=== PATIENT | female | born 1995 | race African-American/Black ===

== ENCOUNTER 2017-04-18 23:02 | Emergency (ER) | payer OTHER ==
[~2017-04-18] VITALS: Ht 162.6 cm; Wt 122.7 kg
[2017-04-19 01:02] LABS: HEMATOCRIT 36.8 % (36.0-46.0); MCH 27.6 PG (29.0-34.0); MCHC 34.5 G/DL (30.0-36.0); MEAN PLAT.VOLUME 10.3 uM^3 (9.5-12.4); PLATELET COUNT 440 K/uL (156-360); RBC DIS.WIDTH-CV 12.7 % (11.8-14.6); RBC DIS.WIDTH-SD 36.4 % (39-53); WHITE BLOOD COUNT 8.4 K/uL (4.1-10.2)
[2017-04-19 01:12] LABS: CHLORIDE 107 mEq/L (99-109); POTASSIUM 3.8 mEq/L (3.7-5.4); SODIUM 138 mEq/L (136-147)
[2017-04-19 01:14] LABS: GLUCOSE 108 mg/dL (70-99)
[2017-04-19 01:15] LABS: ANION GAP 8 MEQ/L (2-14)
[2017-04-19 01:16] LABS: TOTAL BILIRUBIN 0.2 mg/dL (0.0-1.0)
[2017-04-19 01:17] LABS: ALKALINE PHOSPHATASE 101 IU/L (3-129); GFR ESTIMATE (CALCULATED) > 59 mL/min/
[2017-04-19 01:19] LABS: UREA NITROGEN (BUN) 10 mg/dL (9-23)
[2017-04-19] MEDS ORDERED: LITHIUM CARBON300 M1 PO (01:25)
[2017-04-19 01:33] LABS: QUANTITATIVE HCG < 4.0 MIU/ML
[2017-04-19 01:49] VITALS: BP 129/95
== END 2017-04-19 01:49 | disposition home or self-care (01) ==
LOC: EME 23:02
PROVIDERS: Physician Assistant
DX: R51 Headache (principal); Z76.0 Encounter for issue of repeat prescription
CPT/HCPCS: 80053; 84702; 85027; 99281; 99283